=== PATIENT | female | born 1995 | race Caucasian/White ===

== ENCOUNTER 2017-12-03 21:38 | Emergency (ER) | payer OTHER ==
[2017-12-03] MEDS: IBUPROFEN 600 MG TAB PO (22:59)
== END 2017-12-03 23:20 | disposition home or self-care (01) ==
LOC: FTE 21:38
DX: S01.01XA Laceration without foreign body of scalp, initial encounter (principal); R40.2412 Glasgow coma scale score 13-15, at arrival to emergency department; Y04.8XXA Assault by other bodily force, initial encounter
CPT/HCPCS: 12001; 99283-25